=== PATIENT | male | born 1995 | race Caucasian/White ===

== ENCOUNTER 2016-05-04 09:13 | Emergency (ER) | payer OTHER ==
[~2016-05-04 09:13] MED LIST: AUGMENTIN TAB875 MG PO; BUSPAR 5MG TABLE5 MG PO; CELEXA20 MG PO; IBUPROFEN600 MG PO; PERIDEX15 ML MM; TYLENOL 325MG325 MG PO
[2016-05-04 10:11] LABS: HEMOGLOBIN 15.8 gm/dl (14.0-17.5); RED BLOOD COUNT 5.34 M/UL (4.20-5.50); WHITE BLOOD COUNT 7.4 K/UL (4.5-11.0)
[2016-05-04 10:49] LABS: BUN/CREATININE RATIO 11 (0-10)
[2016-11-22] MEDS ORDERED: PROVENTIL HFA 61 INH INH (09:21)
[2016-11-22] MEDS ORDERED: KEFLEX500 MG PO (14:56)
[2016-11-22] MEDS ORDERED: IBUPROFEN600 MG PO (14:56)
== END 2016-05-04 11:23 | disposition left against medical advice (07) ==
LOC: ER1 09:13
PROVIDERS: Physician Assistant
DX: E87.6 Hypokalemia (principal); F10.10 Alcohol abuse, uncomplicated; F19.10 Other psychoactive substance abuse, uncomplicated; R00.0 Tachycardia, unspecified; R06.02 Shortness of breath; R07.9 Chest pain, unspecified; F32.9 Major depressive disorder, single episode, unspecified; F17.200 Nicotine dependence, unspecified, uncomplicated; Z79.899 Other long term (current) drug therapy
CPT/HCPCS: 36415; 71020; 80053; 82550; 82553; 83874; 84443; 84484; 85025; 85379; 93005; 99285; J7030